=== PATIENT | male | born 1965 | race African-American/Black ===

== ENCOUNTER 2019-10-27 13:32 | Emergency (ER) | payer BC ==
[~2019-10-27] VITALS: Ht 177.8 cm; Wt 63.4 kg
[2019-10-27] MEDS ORDERED: SODIUM CHLORIDE 0.9% 1,000ML IVBOLUS ONE (14:00)
[2019-10-27] MEDS ORDERED: ONDANSETRON 2MG/ML, 2ML IVPush ONE (14:00)
[2019-10-27] MEDS ORDERED: SODIUM CHLORIDE FLUSH 10ML SYR IVF ONE (14:00)
[2019-10-27] MEDS ORDERED: ONDANSETRON ODT 4 MG ONE (14:33)
--- NOTE | 2019-10-27 14:34 | NUR ---
PRECEPTOR RN: UNABLE TO ESTABLISH PIV. PER ERP, HOLD IV ORDERS AT THIS TIME. OKAY TO GIVE ZOFRAN ODT. ERP AWARE OF CO PAIN, NO PAIN MEDICATIONS ORDERED AT THIS TIME. US AT BEDSIDE. LAB AWARE, UNABLE TO OBTAIN LABS
--- NOTE | 2019-10-27 15:23 | NUR ---
PRECEPTOR RN: PT STOOD STEADILY AT BEDSIDE TO PROVIDE UA. UA COLLECTED AND SENT TO LAB. LAB IN TO DRAW. PT REQUESTING PAIN MEDICATIOS, PT AWARE THAT ETOH LEVEL REQUIRED PRIOR TO PAIN MED ADMINISTRATION AND DEMONSTRATES UNDERSTANDING.
[2019-10-27 15:24] VITALS: BP 136/80
[2019-10-27] MEDS ORDERED: MAALOX/HYOSCYAMINE/LIDOCAINE 45 ML BTL PO ONE (15:30)
--- NOTE | 2019-10-27 15:30 | NUR ---
PRECEPTOR RN: PT FOUND DRESSES, AMBULATING STEADILY DOWN [address] WAY REQUESTING TO LEAVE BECAUSE HE'S "HUNGRY". PT ASSISTED BACK TO SHONA Neal RN, KYRA. ERP TO BEDSIDE TO DISCUSS POC. PT ALERT, FOLLOWING COMMANDS. A&0X3, CAN STATE THE MONTH IS OCTOBER, UNABLE TO STATE DATE. SPEECH CLEAR, FACE SYMMETRICAL. +STRENGTH X 4. VS WNL. PT AGREEABLE TO POC AT THIS TIME.
[2019-10-27 15:33] LABS: BASOPHILS # (AUTO) 0.04 x10^3/uL (0-0.1); BASOPHILS % (AUTO) 1 % (0-1); EOSINOPHILS # (AUTO) 0.02 x10^3/uL (0-0.4); EOSINOPHILS % (AUTO) 1 % (1-7); LYMPHOCYTES # (AUTO) 1.69 x10^3/uL (1-3.4); LYMPHOCYTES % (AUTO) 44 % (22-44); MD NO; MEAN CORPUSCULAR VOLUME 84.5 fL (81-97); MEAN PLATELET VOLUME 8.2 fL (7.4-10.4); MONOCYTES % (AUTO) 5 % (2-9); NEUTROPHILS # (AUTO) 1.86 x10^3/uL (1.8-6.8); NEUTROPHILS % (AUTO) 49 % (42-75); PLATELET COUNT 381 x10^3/uL (130-400); RED BLOOD COUNT 4.87 x10^6/uL (4.38-5.82); RED CELL DISTRIBUTION WIDTH 20.9 % (9.4-14.8)
--- NOTE | 2019-10-27 15:41 | NUR ---
PATIENT UP OUT OF BED, WANDERING HALLS TRYING TO LEAVE, PATIENT IS A&OX4, WANTING TO EAT, AMBULATES WITH STEADY GAIT, NO SIGNS OF STROKE, ASSISTED PATIENT IN WALKING BACK TO ROOM.
[2019-10-27] MEDS ORDERED: MAALOX/HYOSCYAMINE/LIDOCAINE 45 ML BTL ONE (15:42)
[2019-10-27 15:44] LABS: ALANINE AMINOTRANSFERASE 54 U/L (12-78); ALBUMIN 3.4 g/dL (3.4-5.0); ANION GAP 7 mmol/L (5-15); CALCIUM 7.8 mg/dL (8.5-10.1); CHLORIDE 109 mmol/L (98-107); CREATININE 0.65 mg/dL (0.7-1.3)
--- NOTE | 2019-10-27 15:45 | NUR ---
PATIENT IN ROOM ON BED, MEDICATED PER EMAR. BARCODE ROUNDED AND WON'T SCAN, MANUALLY ENTERED IN EMAR. PATIENT TOLERATED WELL, INSTRUCTED TO STAY IN ROOM UNTIL DISCHARGE.
[2019-10-27 15:52] LABS: MICROSCOPIC INDICATED
[2019-10-27 15:53] LABS: ALKALINE PHOSPHATASE 136 U/L (45-117); BILIRUBIN,TOTAL 0.3 mg/dL (0.2-1.0); TOTAL PROTEIN 7.7 g/dL (6.4-8.2)
--- NOTE | 2019-10-27 16:14 | NUR ---
PRECEPTOR RN: DC EDUCATION PROVIDED, PT DEMONSTRATES UNDERSTANDING. PT PROVIDED [employer] FOR SAFE TRANSPORT HOME. PT STATES "BUT I HAVE A CAR HERE". PT MADE AWARE THAT HE IS NOT PERMITTED TO DRIVE D/T INTOXICATION AND HAS BEEN ADVISED TO USE [employer]. PT AMBULATED STEADILY TO DC WITH [employer] SUPER[employer]OR CALLED AND MADE AWARE OF PT, CIRCUMSTANCE, AND PT IDENTIFIERS (HEIGHT/CLOTHING) AND AGREE TO ASSIST IN INSURING THAT PT DOES NOT DRIVE.
[2019-10-27 16:16] LABS: CULTURE INDICATED? NO
== END 2019-10-27 16:02 | disposition home or self-care (01) ==
LOC: ED 15:55
DX: K29.20 Alcoholic gastritis without bleeding (principal); F10.220 Alcohol dependence with intoxication, uncomplicated; R10.12 Left upper quadrant pain; R10.84 Generalized abdominal pain; Y90.0 Blood alcohol level of less than 20 mg/100 ml
CPT/HCPCS: 36415; 71046; 76700; 80053; 80307; 81001; 82140; 83690; 85025; 99284